=== PATIENT | male | born 1970 | race Caucasian/White ===

== ENCOUNTER 2017-11-21 13:13 | Emergency (ER) | payer OTHER, SELFPAY ==
[2017-11-21 13:30] VITALS: BP 129/87; PULSE 93; RESP 20; TEMP 36.6; O2SAT 99; BMI 21.6
--- NOTE | 2017-11-21 14:34 | HMH.EDUTC ---
[facility] Disposition Clinical Impression: Strep throat Disposition: Home, Self-Care Condition on Discharge: Good Instructions: Strep Throat Additional Instructions: Contact precautions discussed with patient Tylenol or ibuprofen as needed for pain or fever If symptoms worsen or do not improve return or be seen in the ER Prescriptions: Azithromycin [Zithromax 250mg tab] 250 mg PO DIRECTED #6 tab Referrals: Irma Alberts PA [Primary Care Provider] - Time of Disposition: 14:41 Medical Decision Making Vital Signs: 11/21/17 13:30 Temperature 98 F Temperature Source Temporal Artery Scan Pulse Rate [Brachial] 93 H Respiratory Rate 20 Blood Pressure [Right Arm] 129/87 Blood Pressure Mean [Right Arm] 101 Blood Pressure Source [Right Arm] Automatic Cuff Blood Pressure Position [Right Arm] Sitting 02 Sat by Pulse Oximetry 99 Oxygen Delivery Method Room Air - Joselito Inquiry Pt receiving controlled substance: No [facility] HPI - General Chief complaint: Urgent Treatment Center Stated complaint: possible flu Time Seen by Provider: 11/21/17 14:34 Mode of Arrival: Ambulatory Source of Information: Patient Limitations: No Limitations Description of Symptoms (Recalled from Triage Doc. by RN): FEELS BAD, BODY HURTS, CHILLS AND FEVER HEENT Symptoms (Recalled from RN notes): Yes Resp Symptoms (Recalled from RN notes): Yes Skin Symptoms (Recalled from RN notes): No MS Symptoms (Recalled from RN notes): No Functional Status (Recalled from RN notes): NA - History of Present Illness Provider Complaint: 47-year-old male presents for body aches, chills, sore throat, patient states he just feels bad that started today. - Related Data Home Medications Medication Instructions Recorded Confirmed Fluticasone/Vilanterol [Breo 1 each IH DAILY 11/21/17 11/21/17 Ellipta 100-25 Mcg INH] Previous Rx's Medication Instructions Recorded Azithromycin [Zithromax 250mg 250 mg PO DIRECTED #6 tab 11/21/17 tab] Allergies Allergy/AdvReac Type Severity Reaction Status Date / Time No Known Allergies Allergy Verified 11/21/17 13:28 - Worker's Comp Is this a Worker's Comp case?: No [facility] History I have reviewed the patient's past medical history: Yes - *Social History Smoking Status: Current every day smoker Tobacco Type: cigarettes Alcohol Intake: never - Psychiatric History Expresses thoughts of harming self/others: None Suicide Plan Description: No Plan ROS Obtained: Yes All systems reviewed & no additional complaints - Constitutional Constitutional: Reports system reviewed and no additional complaints, except as docu, Reports as per HPI, Reports body ache, Reports chills, Reports weakness - Eyes Eyes: Reports system reviewed and no additional complaints, except as docu - ENT Ears, Nose, Mouth, and Throat: Reports system reviewed and no additional complaints, except as docu - Cardiovascular Cardiovascular: Reports system reviewed and no additional complaints, except as docu - Respiratory Respiratory: Yes system reviewed and no additional complaints, except as docu - Gastrointestinal Gastrointestingal: Reports: system reviewed and no additional complaints, except as docu - Musculoskeletal Musculoskeletal: Reports system reviewed and no additional complaints, except as docu - Integumentary/Breasts Skin/Breast: Reports system reviewed and no additional complaints, except as docu - Neurologic Neurologic: Reports system reviewed and no additional complaints, except as docu - Endocrine Endocrine: Reports system reviewed and no additional complaints, except as docu - Hematologic/Lymphatic Henatologic/Lymphatic: Reports system reviewed and no additional complaints, except as docu - Allergic/Immunologic Allergic/Immunologic: Reports system reviewed and no additional complaints, except as docu Physical Exam - General General appearance: alert, in no apparent distress
[2017-11-21 14:58] LABS: UTC Strep Screen (Rapid) Negative (Negative)
== END 2017-11-21 15:00 | disposition home or self-care (01) ==
PROVIDERS: Emergency Provider Nurse Practitioner Family; Family Provider Physician Assistant; PCP Physician Assistant
DX: J02.0 Streptococcal pharyngitis (principal); F17.210 Nicotine dependence, cigarettes, uncomplicated; Z79.51 Long term (current) use of inhaled steroids; Z79.899 Other long term (current) drug therapy
CPT/HCPCS: 87880; 99201

== ENCOUNTER → 2018-12-28 11:56 | Outpatient (CLI) | payer OTHER, SELFPAY | PROVIDERS: Visit Provider Internal Medicine Cardiovascular Disease | DX: R06.00 Dyspnea, unspecified (principal); R53.83 Other fatigue; F10.10 Alcohol abuse, uncomplicated; R94.31 Abnormal electrocardiogram [ECG] [EKG]; Z72.0 Tobacco use; Z82.79 Family history of other congenital malformations, deformations and chromosomal abnormalities | CPT/HCPCS: 36415; 83880 ==

== ENCOUNTER → 2020-04-21 16:37 | Outpatient (CLI) | payer OTHER, SELFPAY ==
--- NOTE | 2020-04-21 16:41 | XR_ITS ---
PROCEDURE: XR CHEST 2V CLINICAL HISTORY: lung pain Smoker, pain COMPARISON: CXR CHEST(2 VIEWS-NOT PORTABLE) from 02/14/2017 CXR CHEST(2 VIEWS-NOT PORTABLE) from 03/15/2017 CXR CHEST(2 VIEWS-NOT PORTABLE) from 07/03/2017 FINDINGS: The cardiomediastinal silhouette and pulmonary vascularity are within normal limits. COPD. No lobar consolidation or collapse No acute bony abnormalities. IMPRESSION: COPD, no acute finding Dictated by: Abad Moreno MD 04/21/2020 18:34 Electronically signed by Abad Moreno MD in [place] 04/21/2020 18:34
== END ==
PROVIDERS: PCP Emergency Medicine; Visit Provider Physician Assistant
DX: R07.9 Chest pain, unspecified (principal)
CPT/HCPCS: 71046

== ENCOUNTER 2020-08-18 08:09 | Emergency (ER) | payer OTHER, SELFPAY ==
[2020-08-18 08:10] VITALS: BP 161/107; PULSE 85; RESP 17; TEMP 37.1; O2SAT 97; BMI 24.1
--- NOTE | 2020-08-18 08:17 | HMH.EDGENADL ---
ED Disposition Clinical Impression: Sinusitis Disposition: Home, Self-Care Condition on Discharge: Good Instructions: Sinusitis Additional Instructions: You were seen on an emergency basis. It is very important that you follow up with your primary care provider and/or specialist as we discussed within 2 days. All labs and imaging were obtained and interpreted here to rule out life threatening emergencies, but your final results should be reviewed by your primary doctor at your follow up appointment. Please return to the emergency department if any of your symptoms worsen, or if they do not improve as we discussed. Referrals: Irma Alberts PA [Primary Care Provider] - - Critical Care Critical Care Time: No Attestation: On , the high probability of a clinically significant, sudden or life threatening deterioration of the following system(s) required my full and direct attention, intervention and personal management. The time I documented below is in addition to time spent performing reported procedures but includes the following listed in this critical care notation. Medical Decision Making - Medical Records Medical records reviewed: Yes: I reviewed the patient's medical records. - Joselito Inquiry Pt receiving controlled substance: No Medical Decision Narrative: 49-year-old male presenting for Covid testing and symptoms of sinusitis x3 days. No antibiotics indicated. Nontoxic, afebrile, hemodynamically stable, oxygenating well on room air. Benign exam. Follow-up with PCP. General Adult HPI - General Stated complaint: Possible sinus infection Time Seen by Provider: 08/18/20 08:21 - History of Present Illness HPI narrative: 49-year-old male with a history of COPD presenting with a 3-day history of nasal congestion. He has been taken [id number] medication for this which is helped the symptoms. He was recently exposed to a family member with COVID-19 and presents for testing. No fever, chills, nausea, vomiting, cough, shortness of breath, chest pain, abdominal pain, diarrhea, constipation. - Related Data Previous Rx's Medication Instructions Recorded Gentamicin Sulfate [Garamycin 0.3% 1 - 2 drops EYE-LEFT Q4H #1 drops 07/05/19 opth wali 5mL] Azithromycin [Z-Lowell 250mg Tab*] 250 mg PO UD DOSE PK #6 tab 10/30/19 methylPREDNISolone [Medrol 4mg 4 mg PO DIRECTED #21 tab 10/30/19 tab] Sulfacetamide Sodium [Bleph-10] 1 drp EYE-BOTH Q3H 7 Days #1 bottle 11/14/19 albuterol sulfate 90 mcg/actuation 2 puff INHALATION Q4-6H PRN #1 inh 01/22/20 aerosol inhaler fluticasone fur. 100 mcg-umeclid See Rx Instructions .ROUTE 07/10/20 62.5 mcg-vilant 25 mcg .COMPLEX #60 unspecified inhalat.powder Allergies Allergy/AdvReac Type Severity Reaction Status Date / Time No Known Allergies Allergy Verified 12/28/18 10:55 [facility] History - Hepatitis A Screen Attestation statement:: This patient has been screened for Hepatitis A risk factors. I have reviewed the patient's past medical history: Yes Medical History: Reports:: Asthma, Chronic Obstructive Pulmonary Disease (COPD) Other Surgeries: Yes: No Previous Surgery Amputation: No Fractures: No - Social History Smoking Status: Current every day smoker Tobacco Type: cigarettes # Packs/Day (cigarettes): 1 Alcohol Intake: never Alcohol Intake Frequency:: 3 or more drinks per day Substance Use Type: denies use Occupational Status: employed Housing: house Family Hx:: No significant family history ROS Obtained: Yes All systems reviewed & no additional complaints Physical Exam General: well developed, well hydrated, no acute distress Head: Normocephalic, atraumatic. Mild bilateral frontal sinus tenderness to palpation EENT: airway patent, mucous membranes moist. extraocular muscles intact. external ears are within normal limits Neck: supple. trachea is midline Heart: rate is normal, rhythm is normal. No murmurs appreciated Lungs: betty
[2020-08-18 08:29] VITALS: BP 126/78; PULSE 60; RESP 18; TEMP 36.7; O2SAT 99
== END 2020-08-18 08:30 | disposition home or self-care (01) ==
LOC: ER 08:26
PROVIDERS: Emergency Provider Physician Assistant; PCP Physician Assistant
DX: Z20.828 Contact with and (suspected) exposure to other viral communicable diseases (principal); J01.90 Acute sinusitis, unspecified; J44.9 Chronic obstructive pulmonary disease, unspecified
CPT/HCPCS: 99282; U0003

== ENCOUNTER → 2020-08-21 11:53 | Outpatient (CLI) | payer OTHER, SELFPAY ==
--- NOTE | 2020-08-21 11:55 | CA_ITS ---
APPROVED REPORT Right Lower Extremity Venous Study for DVT. Monitoring Specialist: JOEL Indications Lower Extremity Pain: Right Pain in right leg Vein Imaging CFV (R): compressive, spontaneous, phasic, augmentation FEM (R): compressive, spontaneous, phasic, augmentation POP (R): compressive, spontaneous, phasic, augmentation DFV (R): compressive, spontaneous, phasic, augmentation PTV (R): Compressible GSV (R): Compressible Peroneals (R):Compressible GAS (R): Compressible Findings No evidence of DVT or superficial thrombophlebitis in the veins scanned of the right lower extremity. Conclusion No evidence of DVT or superficial thrombophlebitis in the veins scanned of the right lower extremity. Electronically signed by : Abad Moreno MD 08/21/2020 15:59:22
[2020-08-21 17:17] LABS: Basophils # 0.1 K/mm3 (0-0.2); Basophils % 0.7 % (0.1-2.0); Eosinophils # 0.1 K/mm3 (0.0-0.4); Eosinophils % 1.4 % (0.1-12.0); Hematocrit 55.6 % (42.0-52.0); Lymphocytes # 1.3 K/mm3 (0.7-4.5); Mean Corpuscular HGB Conc 33.3 g/dL (31.8-35.4); Mean Corpuscular Hemoglobin 31.9 pg (27.0-31.2); Mean Corpuscular Volume 95.8 fl (80-94); Mean Platelet Volume 8.8 fl (7.4-10.4); Monocytes # 0.3 K/mm3 (0.1-1.0); Monocytes % 3.8 % (1.7-9.3); Neutrophils # 6.4 K/mm3 (1.8-7.8); Neutrophils % 78.1 % (37.0-80.0); Platelet Count 225 K/mm3 (142-424); Red Cell Distribution Width 13.4 % (11.5-17.5); White Blood Count 8.2 K/mm3 (4.8-10.8)
[2020-08-21 17:21] LABS: Hemoglobin 18.5 g/dL (14.1-18.0)
[2020-08-21 17:33] LABS: Alanine Aminotransferase 31 U/L (12-78); Albumin Level 4.5 g/dl (3.5-5.0); Albumin/Globulin Ratio 1.6 (1.1-1.8); Alkaline Phosphatase 80 U/L (38-126); Anion Gap 12.4 mEq/L (5-15); Aspartate Amino Transferase 30 U/L (17-59); Bilirubin,Total 0.6 mg/dl (0.2-1.3); Blood Urea Nitrogen 9 mg/dl (9-20); Calcium 9.8 mg/dl (8.4-10.2); Carbon Dioxide 28 mmol/L (22.0-30.0); Chloride 104 mmol/L (98-107); Chol/HDL Ratio 3.8 (1-3.5); Cholesterol 263 mg/dl (140-200); Estimated Glomerular Filt Rate 120 ml/min (>60); GFR (African American) 145 ML/MIN (>60); Globulin 2.8 g/dL (1.3-3.2); Glucose 99 mg/dl (74-100); HDL Cholesterol 69 mg/dl (40-60); Potassium 4.4 mmoL/L (3.5-5.1); Sodium 140 mmol/L (136-145); Total Protein,Serum 7.3 g/dl (6.3-8.2); Triglycerides 105 mg/dl (30-150); VLDL Cholesterol 21 mg/dL (0-40)
[2020-08-21 17:44] LABS: Hemoglobin A1C 5.3 % (4.0-6.0)
[2020-08-21 17:45] LABS: Direct LDL Cholesterol 181.66 mg/dL (100-129)
[2020-08-21 17:49] LABS: 25-OH Vitamin D, Total 15.4 ng/mL (30-100)
[2020-08-21 17:51] LABS: T4 (Thyroxine) 8.2 ug/dl (5.53-11.0)
[2020-08-21 18:39] LABS: Vitamin B12 276 pg/mL (239-931)
== END ==
PROVIDERS: PCP Physician Assistant; Visit Provider Physician Assistant
DX: M79.604 Pain in right leg (principal)
CPT/HCPCS: 80053; 80061; 82306; 82607; 82746; 83036; 84436; 84443; 85025; 93971

== ENCOUNTER 2020-11-03 07:28 | Emergency (ER) | payer OTHER, SELFPAY ==
[2020-11-03 07:28] VITALS: BP 159/105; PULSE 79; RESP 15; TEMP 36.8; O2SAT 91; BMI 24.1
--- NOTE | 2020-11-03 07:40 | HMH.EDSKAF ---
ED Disposition Clinical Impression: Herpes zoster Qualifiers: Herpes zoster complications: without complications Qualified Code(s): B02.9 - Zoster without complications Disposition: Home, Self-Care Condition on Discharge: Good Instructions: DI for Shingles Additional Instructions: use meds and see pcp for follow up Prescriptions: Acyclovir [Acyclovir 800mg tab] 800 mg PO 5XDAY #35 tab Transmission Status: Pending to [facility] predniSONE [Prednisone 20mg Tab] 20 mg PO BID #10 tab Transmission Status: Pending to [facility] Referrals: Irma Alberts PA [Primary Care Provider] - - Critical Care Critical Care Time: No Attestation: On 11/03/20, the high probability of a clinically significant, sudden or life threatening deterioration of the following system(s) required my full and direct attention, intervention and personal management. The time I documented below is in addition to time spent performing reported procedures but includes the following listed in this critical care notation. Medical Decision Making - Medical Records Medical records reviewed: Yes: I reviewed the patient's medical records. - Joselito Inquiry Pt receiving controlled substance: No Vital Signs: 11/03/20 07:28 11/03/20 07:44 Temperature 98.2 F Temperature Source Oral Pulse Rate [Left Brachial] 79 80 Respiratory Rate 15 18 Blood Pressure [Left Arm] 159/105 H 159/105 H Blood Pressure Mean [Left Arm] 123 123 Blood Pressure Source [Left Arm] Automatic Cuff Automatic Cuff Blood Pressure Position [Left Arm] Sitting Sitting 02 Sat by Pulse Oximetry 91 L 93 L Oxygen Delivery Method Room Air Skin/Abscess/FB HPI - General Chief complaint: Skin/Abscess/Foreign Body Stated complaint: possible shingles rash on back and under arm Time Seen by Provider: 11/03/20 07:35 Mode of Arrival: Ambulatory Source of Information: Patient, Medical Record Limitations: No Limitations Description of Symptoms (Recalled from ER Triage Doc. by RN): Pt reports he thinks he has shingles. Rash to left side of back, and under left axilla. Reports it is painful. - History of Present Illness HPI narrative: rash noted on lt post chest -over the last few days MD complaint: rash Onset (ago): day(s) Tetanus up to date: unsure Location: chest Severity: moderate Associated symptoms: denies other symptoms Treatments prior to arrival: none - Related Data Home Medications Medication Instructions Recorded Confirmed Fluticasone/Umeclidin/Vilanter See Rx Instructions .ROUTE .COMPLEX 11/03/20 11/03/20 [Trelegy Ellipta] Previous Rx's Medication Instructions Recorded Acyclovir [Acyclovir 800mg tab] 800 mg PO 5XDAY #35 tab 11/03/20 predniSONE [Prednisone 20mg 20 mg PO BID #10 tab 11/03/20 Tab] Allergies Allergy/AdvReac Type Severity Reaction Status Date / Time No Known Allergies Allergy Verified 11/03/20 07:40 [facility] History - Hepatitis A Screen Drug use history?: No High risk sexual behaviors?: No History of sexually transmitted infection?: No Currently employed?: No Childcare worker?: No Do you have indoor plumbing?: Yes Do you have electricity?: Yes Attestation statement:: This patient has been screened for Hepatitis A risk factors. I have reviewed the patient's past medical history: Yes Medical History: Reports:: Asthma, Chronic Obstructive Pulmonary Disease (COPD) Denies:: Cancer, Diabetes Mellitus Type 1, Diabetes Mellitus Type 2, MRSA Other Surgeries: Yes: No Previous Surgery Amputation: No Fractures: No - Social History Smoking Status: Current every day smoker Tobacco Type: cigarettes # Packs/Day (cigarettes): 1 Alcohol Intake: current Alcohol Intake Frequency:: 3 or more drinks per day Substance Use Type: denies use Occupational Status: employed Housing: house Family Hx:: No significant family history ROS Obtained: Yes All systems reviewed & no additional
[2020-11-03 07:44] VITALS: BP 159/105; PULSE 80; RESP 18; O2SAT 93
[2020-11-03 08:06] VITALS: BP 148/89; PULSE 81; RESP 17; TEMP 36.8; O2SAT 92
== END 2020-11-03 08:08 | disposition home or self-care (01) ==
PROVIDERS: Emergency Provider Emergency Medicine; PCP Physician Assistant
DX: B02.9 Zoster without complications (principal); J44.9 Chronic obstructive pulmonary disease, unspecified; F17.210 Nicotine dependence, cigarettes, uncomplicated
CPT/HCPCS: 99282

== ENCOUNTER → 2021-07-07 18:10 | Outpatient (CLI) | payer OTHER, SELFPAY ==
[2021-07-07 18:56] LABS: Basophils # 0.1 K/mm3 (0-0.2); Eosinophils # 0.1 K/mm3 (0.0-0.4); Eosinophils % 2.2 % (0.1-12.0); Hematocrit 52.7 % (42.0-52.0); Hemoglobin 17.7 g/dL (14.1-18.0); Lymphocytes # 1.6 K/mm3 (0.7-4.5); Lymphocytes % 25.3 % (10-50); Mean Corpuscular HGB Conc 33.5 g/dL (31.8-35.4); Mean Corpuscular Hemoglobin 32.4 pg (27.0-31.2); Mean Corpuscular Volume 96.6 fl (80-94); Mean Platelet Volume 8.2 fl (7.4-10.4); Monocytes # 0.4 K/mm3 (0.1-1.0); Monocytes % 6.2 % (1.7-9.3); Neutrophils # 4.1 K/mm3 (1.8-7.8); Neutrophils % 65.3 % (37.0-80.0); Platelet Count 248 K/mm3 (142-424); Red Blood Count 5.45 M/mm3 (4.60-6.20); Red Cell Distribution Width 13.4 % (11.5-17.5); White Blood Count 6.2 K/mm3 (4.8-10.8)
[2021-07-07 18:58] LABS: Alanine Aminotransferase 30 U/L (12-78); Albumin Level 4.5 g/dl (3.5-5.0); Albumin/Globulin Ratio 1.7 (1.1-1.8); Alkaline Phosphatase 62 U/L (38-126); Anion Gap 15.2 mEq/L (5-15); Aspartate Amino Transferase 29 U/L (17-59); Bilirubin,Total 0.7 mg/dl (0.2-1.3); Blood Urea Nitrogen 9 mg/dl (9-20); Calcium 9.6 mg/dl (8.4-10.2); Carbon Dioxide 28 mmol/L (22.0-30.0); Chloride 101 mmol/L (98-107); Chol/HDL Ratio 3.6 (1-3.5); Cholesterol 259 mg/dl (140-200); Estimated Glomerular Filt Rate 119 ml/min (>60); GFR (African American) 144 ML/MIN (>60); Globulin 2.7 g/dL (1.3-3.2); Glucose 86 mg/dl (74-100); HDL Cholesterol 71 mg/dl (40-60); Potassium 4.2 mmoL/L (3.5-5.1); Sodium 140 mmol/L (136-145); Total Protein,Serum 7.2 g/dl (6.3-8.2); Triglycerides 103 mg/dl (30-150); VLDL Cholesterol 21 mg/dL (0-40)
[2021-07-07 19:12] LABS: Free T4 (Free Thyroxine) 1.23 ng/dl (0.78-2.19)
[2021-07-07 19:14] LABS: 25-OH Vitamin D, Total 25.4 ng/mL (30-100)
[2021-07-07 19:21] LABS: Direct LDL Cholesterol 157.18 mg/dL (100-129)
[2021-07-07 19:30] LABS: Prostate Specific Ag Screen 0.7 ng/ml (0.0-4.0); Thyroid Stimulating Hormone 5.82 uIU/mL (0.465-4.68)
== END ==
PROVIDERS: Visit Provider Physician Assistant
DX: J44.9 Chronic obstructive pulmonary disease, unspecified (principal); Z12.5 Encounter for screening for malignant neoplasm of prostate; E55.9 Vitamin D deficiency, unspecified; Z79.899 Other long term (current) drug therapy
CPT/HCPCS: 80053; 80061; 82306; 84439; 84443; 85025; G0103

== ENCOUNTER 2021-07-27 16:58 | Emergency (ER) | payer OTHER, SELFPAY ==
[2021-07-27 17:25] VITALS: BP 143/93; PULSE 84; RESP 18; TEMP 36.9; O2SAT 95; BMI 23.3
--- NOTE | 2021-07-27 17:56 | HMH.EDUTC ---
[facility] [place] Clinical Impression: Cellulitis of left foot Disposition: Home, Self-Care Condition on Discharge: Good Instructions: Cellulitis Additional Instructions: Keep the affected area clean and dry. Follow up with your regular doctor. Take the antibiotics as directed and apply the topical antibiotics as directed. Apply warm wet compresses to the affected area three or four times per day. GO TO THE ER FOR ANY WORSENING SYMPTOMS Prescriptions: Sulfamethoxazole/Trimethoprim [Bactrim DS tablet] 1 each PO BID 10 Days #20 tab Transmission Status: Received by [facility] Mupirocin [Bactroban 2% Ointment 22gm tube] 1 applicatio TP TID 7 Days #1 gm Transmission Status: Received by [facility] cephALEXin [cephALEXin 500mg capsule] 500 mg PO Q6H 10 Days #40 cap Transmission Status: Received by [facility] Referrals: Chuck Vallejo MD [Primary Care Provider] - Forms: Work/School Release Time of Disposition: 18:22 Medical Decision Making - Medical Records Medical records reviewed: No: I reviewed the patient's medical records. - Joselito Inquiry Pt receiving controlled substance: No Vital Signs: 07/27/21 17:25 07/27/21 18:05 Temperature 98.4 F 98.4 F Temperature Source Oral Pulse Rate 84 Pulse Rate [Right Brachial] 84 Respiratory Rate 18 18 Blood Pressure 143/93 H Blood Pressure [Right Arm] 143/93 H Blood Pressure Mean [Right Arm] 109 Blood Pressure Source [Right Arm] Automatic Cuff Blood Pressure Position [Right Arm] Sitting 02 Sat by Pulse Oximetry 95 Oxygen Delivery Method Room Air Orders (Tests/Meds): ED MEDICATIONS Discontinued Medications Generic Name Dose Route Start Last Admin Trade Name Freq PRN Reason Stop Dose Admin Ceftriaxone Sodium 1 gm 07/27/21 18:02 07/27/21 18:16 Ceftriaxone 1gm Vial IM 07/27/21 18:03 1 gm ONCE ONE Administration Lidocaine HCl 0 ml 07/27/21 18:02 07/27/21 18:17 Lidocaine 1% 5ml Pf Vial IM 07/27/21 18:03 2.1 ml ONCE ONE Administration [facility] [place] HPI - General Stated complaint: insect bite on lt foot Time Seen by Provider: 07/27/21 17:56 Mode of Arrival: Ambulatory Source of Information: Patient Limitations: No Limitations Description of Symptoms (Recalled from Triage Doc. by RN): PATIENT C/O STING/BITE TO TOP OF LEFT FOOT YESTERDAY. REDNESS AND SWELLING NOTED TO AREA HEENT Symptoms (Recalled from RN notes): No Resp Symptoms (Recalled from RN notes): No Skin Symptoms (Recalled from RN notes): Yes MS Symptoms (Recalled from RN notes): No Functional Status (Recalled from RN notes): WNL - History of Present Illness Provider Complaint: He states that since yesterday he has had a red, painful area on top of his left foot. He denies any known injury. He denies a history of diabetes. He thinks that a insect was in his house shoe and bit him to start his symptoms, but he his not sure. He denies any fever or chills. - Related Data Previous Rx's Medication Instructions Recorded fluticasone fur. 100 mcg-umeclid See Rx Instructions .ROUTE 07/07/21 62.5 mcg-vilant 25 mcg .COMPLEX #28 each inhalat.powder atorvastatin 10 mg tablet 10 mg PO HS #30 tab 07/09/21 cholecalciferol (vitamin D3) 25 25 mcg PO DAILY #30 cap 07/09/21 mcg (1,000 unit) capsule ergocalciferol (vitamin D2) 1,250 1,250 mcg PO WEEKLY #5 cap 07/09/21 mcg (50,000 unit) capsule levothyroxine 25 mcg tablet 25 mcg PO DAILY #30 tab 07/09/21 Mupirocin [Bactroban 2% Ointment 1 applicatio TP TID 7 Days #1 gm 07/27/21 22gm tube] Sulfamethoxazole/Trimethoprim 1 each PO BID 10 Days #20 tab 07/27/21 [Bactrim DS tablet] cephALEXin [cephALEXin 500mg 500 mg PO Q6H 10 Days #40 cap 07/27/21 capsule] Allergies Allergy/AdvReac Type Severity Reaction Status Date / Time No Known Allergies Allergy Verified 07/07/21 15:29 - Worker's Comp Is this a Worker's Comp case?: No [facility]
[2021-07-27 18:05] VITALS: BP 143/93; PULSE 84; RESP 18; TEMP 36.9; O2SAT 95
== END 2021-07-27 18:27 | disposition home or self-care (01) ==
PROVIDERS: Emergency Provider Nurse Practitioner Family; PCP Emergency Medicine
DX: L03.116 Cellulitis of left lower limb (principal); S90.862A Insect bite (nonvenomous), left foot, initial encounter; W57.XXXA Bitten or stung by nonvenomous insect and other nonvenomous arthropods, initial encounter; J44.9 Chronic obstructive pulmonary disease, unspecified; F17.210 Nicotine dependence, cigarettes, uncomplicated
CPT/HCPCS: 96372; 99202; G0463

== ENCOUNTER → 2021-08-06 07:57 | Outpatient (CLI) | payer OTHER, SELFPAY ==
--- NOTE | 2021-08-06 08:45 | PC.NURSE ---
PFT Completed on Pt without incident. Albuterol 0.083% given to Pt via HHN, per protocol, Pt tolerated tx well.
== END ==
PROVIDERS: PCP Emergency Medicine; Visit Provider Physician Assistant
DX: J44.9 Chronic obstructive pulmonary disease, unspecified (principal)
CPT/HCPCS: 94060; 94726; 94729

== ENCOUNTER 2021-12-14 15:51 | Emergency (ER) | payer OTHER, SELFPAY ==
[2021-12-14 16:23] VITALS: BP 133/83; PULSE 92; RESP 16; TEMP 37.1; O2SAT 96; BMI 23.3
--- NOTE | 2021-12-14 16:46 | HMH.EDUTC ---
[facility] [place] Clinical Impression: Laceration of right foot Qualifiers: Encounter type: initial encounter Qualified Code(s): S91.311A - Laceration without foreign body, right foot, initial encounter Cellulitis Qualifiers: Site of cellulitis: extremity Site of cellulitis of extremity: lower extremity Laterality: right Qualified Code(s): L03.115 - Cellulitis of right lower limb Disposition: Home, Self-Care Condition on Discharge: Good Instructions: Cellulitis, DI for Avulsion Laceration (Not Requiring Sutures) Additional Instructions: Keep the wound clean and dry. Keep a dressing on it if you are going to be getting it dirty. Watch the for signs of infection, such as redness, swelling, drainage, fever. etc. Take tylenol or ibuprofen for pain. Follow up with your regular doctor. I recommend you to follow up with Dr. Ahuja (podiatry). I put a referral in. Call her office to make an appointment if you want to see her. GO TO THE ER FOR ANY WORSENING SYMPTOMS OR CONCERNS. Prescriptions: Sulfamethoxazole/Trimethoprim [Bactrim DS tablet] 1 each PO BID 10 Days #20 tab Transmission Status: Received by [facility] Mupirocin [Bactroban 2% Ointment 22gm tube] 1 applicatio TP TID 7 Days #1 gm Transmission Status: Received by [facility] cephALEXin [cephALEXin 500mg capsule] 500 mg PO Q6H 10 Days #40 cap Transmission Status: Received by [facility] Referrals: Chuck Vallejo MD [Primary Care Provider] - Forms: Work/School Release Time of Disposition: 17:22 Medical Decision Making - Medical Records Medical records reviewed: No: I reviewed the patient's medical records. - Joselito Inquiry Pt receiving controlled substance: No Vital Signs: 12/14/21 16:23 12/14/21 17:26 Temperature 98.7 F 98.1 F Temperature Source Oral Oral Pulse Rate 92 H Pulse Rate [Right Brachial] 92 H Respiratory Rate 16 18 Blood Pressure 133/83 Blood Pressure [Right Arm] 133/83 Blood Pressure Mean [Right Arm] 99 Blood Pressure Source Automatic Cuff Blood Pressure Source [Right Arm] Automatic Cuff Blood Pressure Position Sitting Blood Pressure Position [Right Arm] Sitting 02 Sat by Pulse Oximetry 96 Oxygen Delivery Method Room Air Room Air Orders (Tests/Meds): ED MEDICATIONS Discontinued Medications Generic Name Dose Route Start Last Admin Trade Name Lety PRN Reason Stop Dose Admin Ceftriaxone Sodium 1 gm 12/14/21 16:54 12/14/21 16:59 Ceftriaxone 1gm Vial IM 12/14/21 16:55 1 gm ONCE ONE Administration Lidocaine HCl 0 ml 12/14/21 16:54 12/14/21 17:00 Lidocaine 1% 5ml Pf Vial IM 12/14/21 16:55 4 ml ONCE ONE Administration ORDERS Category Date Time Status Wound Culture and Gram Stain Stat Micro 12/14/21 17:24 Results [facility] [place] - General Stated complaint: poss infected laceration to L foot Time Seen by Provider: 12/14/21 16:46 Mode of Arrival: Ambulatory Source of Information: Patient Limitations: No Limitations Description of Symptoms (Recalled from Triage Doc. by RN): pt. cut left big toe/ foot with chainsaw HEENT Symptoms (Recalled from RN notes): No Resp Symptoms (Recalled from RN notes): No Skin Symptoms (Recalled from RN notes): No MS Symptoms (Recalled from RN notes): Yes Functional Status (Recalled from RN notes): n/a - History of Present Illness Provider Complaint: 3 days ago he was working with a chainsaw and slipped and cut the top of his foot with the saw. He has a small, somewhat superficial laceration on the top of his right foot. He is here today because he is having redness around the site and his is afraid it will get infected. He is not a known diabetic. His tetanus immunization is up to date. - Related Data Home Medications Medication Instructions Recorded Confirmed Atorvastatin Calcium [Lipitor 10mg 10 mg PO HS 12/14/21 12/14/21 Tab] Cholecalciferol (Vitamin D3) 25 mcg PO
[2021-12-14 17:26] VITALS: BP 133/83; PULSE 92; RESP 18; TEMP 36.7; O2SAT 99
== END 2021-12-14 17:28 | disposition home or self-care (01) ==
PROVIDERS: Emergency Provider Nurse Practitioner Family; PCP Emergency Medicine
DX: L03.115 Cellulitis of right lower limb (principal); S91.311A Laceration without foreign body, right foot, initial encounter; W31.2XXA Contact with powered woodworking and forming machines, initial encounter
CPT/HCPCS: 87070; 87077; 87186; 87205; 96372; 99202; G0463; J0696

== ENCOUNTER 2022-01-27 15:59 | Emergency (ER) | payer OTHER, SELFPAY ==
[2022-01-27 16:01] VITALS: BP 134/85; PULSE 124; RESP 20; TEMP 36.7; O2SAT 94; BMI 23.3
--- NOTE | 2022-01-27 16:20 | XR_ITS ---
PROCEDURE INFORMATION: Exam: XR Chest Exam date and time: 01/27/2022 4:26 PM Age: 51 years old Clinical indication: Cough; Additional info: Cough, bodyaches, chills TECHNIQUE: Imaging protocol: XR of the chest. Views: 2 views. COMPARISON: CR XR CHEST 2V 04/21/2020 4:46 PM FINDINGS: Lungs: Regions of peribronchial thickening are present at both lung bases. Patchy interstitial infiltrates most pronounced in the right perihilar region are also present. No pleural effusions are demonstrated. Pleural spaces: See Lungs finding. Heart/Mediastinum: Unremarkable. No cardiomegaly. Bones/joints: Unremarkable. IMPRESSION: Findings compatible with bronchitis. Superimposed patchy interstitial infiltrates. Findings are nonspecific however may reflect an interstitial pneumonitis.
[2022-01-27 16:34] LABS: Strep Scrn Group A (Rapid) Negative (Negative)
[2022-01-27 16:58] LABS: Coronavirus 19, PCR Not Detected (NotDetected); Influenza A, PCR Not Detected (NotDetected); Influenza B, PCR Not Detected (NotDetected)
--- NOTE | 2022-01-27 17:17 | HMH.EDGENADL ---
ED Disposition Clinical Impression: Bronchitis Disposition: Home, Self-Care Condition on Discharge: Good Instructions: DI for Acute Bronchitis Additional Instructions: Please follow-up with your primary care physician in 2 to 3 days for further management. Please take your antibiotic as prescribed. Please return back to the emergency department for chest pain, difficulty breathing, inability to eat and drink or worsening symptoms. Prescriptions: Amoxicillin/Potassium Clav [Augmentin 500mg tab] 500 mg PO TID #30 tab Transmission Status: Received by [facility] Referrals: Chuck Vallejo MD [Primary Care Provider] - Forms: Work/School Release - Critical Care Critical Care Time: No Attestation: On 01/27/22, the high probability of a clinically significant, sudden or life threatening deterioration of the following system(s) required my full and direct attention, intervention and personal management. The time I documented below is in addition to time spent performing reported procedures but includes the following listed in this critical care notation. Medical Decision Making - Medical Records Medical records reviewed: Yes: I reviewed the patient's medical records. - Joselito Inquiry Pt receiving controlled substance: No Vital Signs: 01/27/22 16:01 01/27/22 18:52 Temperature 98.1 F 98.5 F Temperature Source Oral Oral Pulse Rate 116 H Pulse Rate [Right Radial] 124 H Respiratory Rate 20 18 Blood Pressure 128/85 Blood Pressure [Right Arm] 134/85 Blood Pressure Mean [Right Arm] 101 Blood Pressure Source [Right Arm] Automatic Cuff Blood Pressure Position [Right Arm] Sitting 02 Sat by Pulse Oximetry 94 L Oxygen Delivery Method Room Air Room Air - Lab Data Lab results reviewed: Yes: I reviewed the patient's lab results. Lab Results 01/27/22 16:15: Group A Strep Rapid Negative 01/27/22 16:19: SARS-CoV-2 (PCR) Not detected, Influenza A Untype (PCR) Not detected, Influenza Type B (PCR) Not detected Orders (Tests/Meds): ORDERS Category Date Time Status Strep Screen Confirmation Stat Micro 01/27/22 16:15 Received Medical Decision Narrative: Mr. Rodriguez is a 51-year-old male with no significant past medical history presenting with sore throat, body aches, cough and congestion for a week. Patient is afebrile and hemodynamically stable on arrival. Physical exam remarkable for well-appearing male nontoxic-appearing. Patient is breathing comfortably with no wheezing, rales or rhonchi. Patient has normal oropharyngeal, no lymphadenopathy, full range of motion of the neck. Otherwise benign exam. Patient is swabbed for Covid and flu which is negative. Chest x-ray shows no evidence of pneumonia but does show bronchitis/pneumonitis. Patient is given a prescription for antibiotic for outpatient management and instructed to follow-up with primary care physician in 2 to 3 days for further management. Patient instructed to return to the ED for any concerning symptoms such as difficulty breathing, chest pain or any other concerning symptoms. General Adult HPI - General Chief complaint: Upper Respiratory Infection Stated complaint: body aches,SOA,VALENCIA cough Time Seen by Provider: 01/27/22 16:15 Mode of Arrival: Ambulatory Source of Information: Patient Limitations: No Limitations Description of Symptoms (Recalled from ER Triage Doc. by RN): Pt states that he had a sore throat on Tuesday and Tuesday. Advises that Tuesday he began having a VALENCIA, chills and bodyaches - History of Present Illness HPI narrative: Mr. Lindsey cavanaugh is a 51 yo male w/ no significant PMH who presents to the ED for sore throat on Tuesday and Tuesday. Advises that Tuesday he began having a VALENCIA, chills and bodyaches. He denies any sick contacts or covid exposures. Patient has full ROM neck. No LAD or oropharyngeal exudate. Patient also reports cough, congestion. He denies any fevers, chills, dyspnea, N/V or other infec
[2022-01-27 18:52] VITALS: BP 128/85; PULSE 116; RESP 18; TEMP 36.9; O2SAT 95
== END 2022-01-27 18:54 | disposition home or self-care (01) ==
PROVIDERS: Emergency Provider Student in an Organized Health Care Education/Training Program; PCP Emergency Medicine
DX: J40 Bronchitis, not specified as acute or chronic (principal); J06.9 Acute upper respiratory infection, unspecified; R51.9 Headache, unspecified; J44.9 Chronic obstructive pulmonary disease, unspecified; F17.210 Nicotine dependence, cigarettes, uncomplicated; Z20.822 Contact with and (suspected) exposure to COVID-19; Z79.51 Long term (current) use of inhaled steroids; Z79.899 Other long term (current) drug therapy
CPT/HCPCS: 71046; 87430; 99284; C9803; U0003; U0005

== ENCOUNTER → 2022-08-17 10:29 | Outpatient (CLI) | payer OTHER, SELFPAY ==
[2022-08-17 20:16] LABS: Basophils # 0.1 K/mm3 (0-0.2); Basophils % 1.3 % (0.1-2.0); Eosinophils # 0.2 K/mm3 (0.0-0.4); Eosinophils % 2.4 % (0.1-12.0); Hematocrit 49.9 % (42.0-52.0); Hemoglobin 16.8 g/dL (14.1-18.0); Lymphocytes # 1.8 K/mm3 (0.7-4.5); Lymphocytes % 25.9 % (10-50); Mean Corpuscular HGB Conc 33.7 g/dL (31.8-35.4); Mean Corpuscular Hemoglobin 31.9 pg (27.0-31.2); Mean Corpuscular Volume 94.7 fl (80-94); Mean Platelet Volume 8.6 fl (7.4-10.4); Monocytes # 0.4 K/mm3 (0.1-1.0); Monocytes % 5.9 % (1.7-9.3); Neutrophils # 4.6 K/mm3 (1.8-7.8); Neutrophils % 64.5 % (37.0-80.0); Platelet Count 249 K/mm3 (142-424); Red Blood Count 5.27 M/mm3 (4.60-6.20)
[2022-08-17 20:36] LABS: Alanine Aminotransferase 27 U/L (12-78); Albumin Level 4.3 g/dl (3.5-5.0); Albumin/Globulin Ratio 1.7 (1.1-1.8); Alkaline Phosphatase 81 U/L (38-126); Anion Gap 15.3 mEq/L (5-15); Aspartate Amino Transferase 28 U/L (17-59); Bilirubin,Total 0.5 mg/dl (0.2-1.3); Blood Urea Nitrogen 8 mg/dl (9-20); Calcium 9.1 mg/dl (8.4-10.2); Carbon Dioxide 27 mmol/L (22.0-30.0); Chloride 100 mmol/L (98-107); Chol/HDL Ratio 3.7 (1-3.5); Cholesterol 268 mg/dl (140-200); Estimated Glomerular Filt Rate 102 ml/min (>60); GFR (African American) 123 ML/MIN (>60); Globulin 2.6 g/dL (1.3-3.2); Glucose 72 mg/dl (74-100); HDL Cholesterol 73 mg/dl (40-60); Potassium 4.3 mmoL/L (3.5-5.1); Sodium 138 mmol/L (136-145); Total Protein,Serum 6.9 g/dl (6.3-8.2); Triglycerides 82 mg/dl (30-150); VLDL Cholesterol 16 mg/dL (0-40)
[2022-08-17 20:53] LABS: Direct LDL Cholesterol 171.05 mg/dL (100-129)
[2022-08-17 21:08] LABS: 25-OH Vitamin D, Total < 12.8 ng/mL (30-100); Prostate Specific Ag Screen 0.6 ng/ml (0.0-4.0); Thyroid Stimulating Hormone 6.91 uIU/mL (0.465-4.68)
== END ==
PROVIDERS: PCP Physician Assistant; Visit Provider Physician Assistant
DX: Z00.00 Encounter for general adult medical examination without abnormal findings (principal); E55.9 Vitamin D deficiency, unspecified; Z12.5 Encounter for screening for malignant neoplasm of prostate
CPT/HCPCS: 80053; 80061; 82306; 84443; 85025; G0103

== ENCOUNTER 2023-11-09 09:57 | Emergency (ER) | payer OTHER, SELFPAY ==
[2023-11-09 10:05] VITALS: BP 140/89; PULSE 71; RESP 18; TEMP 36.6; O2SAT 95; BMI 23.3
--- NOTE | 2023-11-09 10:28 | ED_ITS ---
Discharge Plan Disposition Patient Disposition: Home, Self-Care Condition: Good Prescriptions Prescriptions: New methylprednisolone 4 mg Tablets,Dose Pack 4 mg PO DIRECTED 6 Days Qty: 21 0RF Rx Instructions: Take 1 pack as directed for 6 days guaifenesin [Mucinex] 600 mg tablet extended release 12hr 600 - 1,200 mg PO BIDP PRN (Reason: Congestion) Qty: 30 0RF benzonatate [benzonatate] 100 mg capsule 100 mg PO TIDP PRN (Reason: Cough) Qty: 30 0RF amoxicillin-pot clavulanate 875-125 mg Tablet 1 tab PO Q12H Qty: 20 0RF No Action Trelegy Ellipta 100-62.5-25 mcg blister with device See Rx Instructions .ROUTE .COMPLEX Qty: 60 2RF Dose Instruction: INHALE 1 PUFF BY MOUTH ONCE A DAY FOR COPD Rx Instructions: INHALE 1 PUFF BY MOUTH ONCE A DAY FOR COPD Referrals Follow up/Referrals: Imra Alberts PA [Primary Care Provider] - See instructions Activity Restrictions/Add. Instructions Additional Instructions/Restrictions: Drink plenty of fluids. Take tylenol or ibuprofen for pain or fever. Take the medications as directed. Follow up with your regular doctor. GO TO THE ER FOR ANY WORSENING SYMPTOMS Clinical Impressions Clinical Impression: Chronic obstructive pulmonary disease Stand Alone Forms Stand Alone Forms: Work/School Release Instructions Patient Instructions: Chronic Obstructive Pulmonary Disease, DI for Chronic Obstructive Pulmonary Disease Discharge ED Provider: Daniel Bowman [facility] [place] HPI General Stated complaint: soa, runny nose Mode of Arrival: Ambulatory Source of Information: Patient Limitations: No Limitations Time Seen by Provider: 11/09/23 10:28 Description of Symptoms (Recalled from Triage Doc. by RN): Pt's symptoms are cough and feeling short of breath (o2 sat was 95 RA). HEENT Symptoms (Recalled from RN notes): No Resp Symptoms (Recalled from RN notes): Yes Skin Symptoms (Recalled from RN notes): No MS Symptoms (Recalled from RN notes): No Functional Status (Recalled from RN notes): n/a History of Present Illness Provider Complaint: He states that for the past 2 days he has had sinus congestion, chest congestion, and he has had chest tightness with deep breathing. Related Data Previous Rx's Medication Instructions Recorded fluticasone fur. 100 mcg-umeclid See Rx Instructions .Route 10/13/23 62.5 mcg-vilant 25 mcg .COMPLEX #60 ea inhalat.powder (Trelegy Ellipta) amoxicillin 875 mg-potassium 1 tab PO Q12H #20 tabs 11/09/23 clavulanate 125 mg tablet benzonatate 100 mg capsule 100 mg PO TIDP PRN Cough #30 caps 11/09/23 guaifenesin 600 mg tablet, 600 - 1,200 mg PO BIDP PRN 11/09/23 extended release 12 hr (Mucinex) Congestion #30 tabs methylprednisolone 4 mg tablets in 4 mg PO DIRECTED 6 days #21 tabs 11/09/23 a dose pack Allergies Allergy/AdvReac Type Severity Reaction Status Date / Time No Known Allergies Allergy Verified 11/09/23 10:15 Worker's Comp Is this a Worker's Comp case?: No [facility] Disclaimer: The information contained in this section may have been updated after the patient was seen, as this information can be updated by other users. Medical History Chronic obstructive pulmonary disease Hyperlipidemia Hypothyroidism Vitamin D deficiency Social History Smoking Status: Current every day smoker tobacco type: cigarettes packs per day: 1 second hand exposure: Yes alcohol intake: current substance use type: denies use current occupational status: employed Travel in the last 8 weeks: None housing: house ROS Obtained: Yes All systems reviewed & no additional complaints except as documented Constitutional Constitutional: Reports poor appetite Eyes Eyes: Reports system reviewed and no additional complaints, except as documented ENT Ears, Nose, Mouth, and Throat: Reports as per HPI Cardiovascular Cardiovascular: Reports system reviewed and no additional complaints, except as documented and Denies chest pain Respiratory Respiratory: Denies shortness of breath, Reports chest congestion, Reports cough, Denies stridor and Denies wheezing Gastrointestinal Gastrointestingal: Reports system reviewed and no additional complaints, except as documented; Denies abdominal pain, diarrhea or vomiting Musculoskeletal Musculoskeletal: Reports system reviewed and no additional complaints, except as documented and Denies arthralgias Integumentary/Breasts Skin/Breast: Reports system reviewed and no additional complaints, except as documented and Denies rash Neurologic Neurologic: Denies paresthesias Allergic/Immunologic Allergic/Immunologic: Denies wheezing Physical Exam General General appearance: alert and in no apparent distress Head Head exam: atraumatic, normocephalic and normal inspection Eye Eye exam: Present normal appearance, PERRL and EOMI ENT ENT exam: Present normal exam, normal oropharynx, mucous membranes moist, TM's normal bilaterally and normal external ear exam Neck Neck exam: Present normal inspection, full ROM and trachea midline; Absent meningismus or lymphadenopathy Chest Chest inspection: Present normal inspection and symmetric chest wall rise; Absent tenderness Respiratory Respiratory exam: Present normal lung sounds bilaterally; Absent respiratory distress Cardiovascular Cardiovascular exam: Present regular rate and normal rhythm; Absent JVD Abdominal Exam Abdominal exam: Present soft and normal bowel sounds; Absent distention, tenderness or guarding Extremities Exam Extremities exam: Present normal inspection, full ROM and normal capillary refill; Absent calf tenderness Back Exam Back exam: Present normal inspection; Absent tenderness Neurological Exam Neurological exam: Present alert and oriented X3 Psychiatric Psychiatric exam: Present normal affect and normal mood Skin Skin exam: Present warm, dry, intact and normal color Lymphatic Lymphatic Findings: no adenopathy Medical Decision Making Medical Records Medical records reviewed: No I reviewed the patient's medical records. Joselito Inquiry Pt receiving controlled substance: No Vital Signs: 11/09/23 10:05 Temperature 97.9 F Temperature Source Oral Pulse Rate [Right Radial] 71 Respiratory Rate 18 Blood Pressure [Right Arm] 140/89 Blood Pressure Mean [Right Arm] 106 Blood Pressure Source [Right Arm] Automatic Cuff Blood Pressure Position [Right Arm] Sitting 02 Sat by Pulse Oximetry 95 Oxygen Delivery Method Room Air
[2023-11-09 11:02] VITALS: BP 140/89; PULSE 71; RESP 18; TEMP 36.6; O2SAT 95
--- NOTE | 2023-11-14 16:26 | EXP.UTC ---
Discharge Plan Disposition Patient Disposition: Home, Self-Care Condition: Good Prescriptions Prescriptions: New methylprednisolone 4 mg Tablets,Dose Pack 4 mg PO DIRECTED 6 Days Qty: 21 0RF Rx Instructions: Take 1 pack as directed for 6 days guaifenesin [Mucinex] 600 mg tablet extended release 12hr 600 - 1,200 mg PO BIDP PRN (Reason: Congestion) Qty: 30 0RF benzonatate [benzonatate] 100 mg capsule 100 mg PO TIDP PRN (Reason: Cough) Qty: 30 0RF amoxicillin-pot clavulanate 875-125 mg Tablet 1 tab PO Q12H Qty: 20 0RF No Action Trelegy Ellipta 100-62.5-25 mcg blister with device See Rx Instructions .ROUTE .COMPLEX Qty: 60 2RF Dose Instruction: INHALE 1 PUFF BY MOUTH ONCE A DAY FOR COPD Rx Instructions: INHALE 1 PUFF BY MOUTH ONCE A DAY FOR COPD Referrals Follow up/Referrals: Irma Alberts PA [Primary Care Provider] - See instructions Activity Restrictions/Add. Instructions Additional Instructions/Restrictions: Drink plenty of fluids. Take tylenol or ibuprofen for pain or fever. Take the medications as directed. Follow up with your regular doctor. GO TO THE ER FOR ANY WORSENING SYMPTOMS Clinical Impressions Clinical Impression: Chronic obstructive pulmonary disease Stand Alone Forms Stand Alone Forms: Work/School Release Instructions Patient Instructions: Chronic Obstructive Pulmonary Disease, DI for Chronic Obstructive Pulmonary Disease Discharge ED Provider: Daniel Bowman [facility] General Stated complaint: soa, runny nose Mode of Arrival: Ambulatory Source of Information: Patient Limitations: No Limitations Time Seen by Provider: 11/09/23 10:28 Description of Symptoms (Recalled from Triage Doc. by RN): Pt's symptoms are cough and feeling short of breath. HEENT Symptoms (Recalled from RN notes): No Resp Symptoms (Recalled from RN notes): Yes Skin Symptoms (Recalled from RN notes): No MS Symptoms (Recalled from RN notes): No Functional Status (Recalled from RN notes): n/a History of Present Illness Provider Complaint: He states that for the past 3 days he has had worsening cough, chest congestion, chest tightness, and malaise. Related Data Previous Rx's Medication Instructions Recorded fluticasone fur. 100 mcg-umeclid See Rx Instructions .Route 10/13/23 62.5 mcg-vilant 25 mcg .COMPLEX #60 ea inhalat.powder (Trelegy Ellipta) amoxicillin 875 mg-potassium 1 tab PO Q12H #20 tabs 11/09/23 clavulanate 125 mg tablet benzonatate 100 mg capsule 100 mg PO TIDP PRN Cough #30 caps 11/09/23 guaifenesin 600 mg tablet, 600 - 1,200 mg PO BIDP PRN 11/09/23 extended release 12 hr (Mucinex) Congestion #30 tabs methylprednisolone 4 mg tablets in 4 mg PO DIRECTED 6 days #21 tabs 11/09/23 a dose pack Allergies Allergy/AdvReac Type Severity Reaction Status Date / Time No Known Allergies Allergy Verified 11/09/23 10:15 Worker's Comp Is this a Worker's Comp case?: [facility] Disclaimer: The information contained in this section may have been updated after the patient was seen, as this information can be updated by other users. Medical History Chronic obstructive pulmonary disease Hyperlipidemia Hypothyroidism Vitamin D deficiency Social History Smoking Status: Current every day smoker tobacco type: cigarettes packs per day: 1 second hand exposure: Yes alcohol intake: current substance use type: denies use current occupational status: employed Travel in the last 8 weeks: None housing: house ROS Obtained: Yes All systems reviewed & no additional complaints except as documented Constitutional Constitutional: Reports poor appetite Eyes Eyes: Reports system reviewed and no additional complaints, except as documented ENT Ears, Nose, Mouth, and Throat: Reports as per HPI Cardiovascular Cardiovascular: Reports system reviewed and no additional complaints, except as documented and Denies chest pain Respiratory Respiratory: Denies shortness of breath, Reports chest congestion, Reports cough, Denies stridor and Denies wheezing Gastrointestinal Gastrointestingal: Reports system reviewed and no additional complaints, except as documented; Denies abdominal pain, diarrhea or vomiting Musculoskeletal Musculoskeletal: Reports system reviewed and no additional complaints, except as documented and Denies arthralgias Integumentary/Breasts Skin/Breast: Reports system reviewed and no additional complaints, except as documented and Denies rash Neurologic Neurologic: Denies paresthesias Allergic/Immunologic Allergic/Immunologic: Denies wheezing Physical Exam General General appearance: alert and in no apparent distress Head Head exam: atraumatic, normocephalic and normal inspection Eye Eye exam: Present normal appearance, PERRL and EOMI ENT ENT exam: Present normal exam, normal oropharynx, mucous membranes moist, TM's normal bilaterally and normal external ear exam Neck Neck exam: Present normal inspection, full ROM and trachea midline; Absent meningismus or lymphadenopathy Chest Chest inspection: Present normal inspection and symmetric chest wall rise; Absent tenderness Respiratory Respiratory exam: Present normal lung sounds bilaterally; Absent respiratory distress Cardiovascular Cardiovascular exam: Present regular rate and normal rhythm; Absent JVD Abdominal Exam Abdominal exam: Present soft and normal bowel sounds; Absent distention, tenderness or guarding Extremities Exam Extremities exam: Present normal inspection, full ROM and normal capillary refill; Absent calf tenderness Back Exam Back exam: Present normal inspection; Absent tenderness Neurological Exam Neurological exam: Present alert and oriented X3 Psychiatric Psychiatric exam: Present normal affect and normal mood Skin Skin exam: Present warm, dry, intact and normal color Lymphatic Lymphatic Findings: no adenopathy Medical Decision Making Medical Records Medical records reviewed: No I reviewed the patient's medical records. Joselito Inquiry Pt receiving controlled substance: No Vital Signs: 11/09/23 10:05 11/09/23 11:02 Temperature 97.9 F 97.9 F Temperature Source Oral Oral Pulse Rate 71 Pulse Rate [Right Radial] 71 Respiratory Rate 18 18 Blood Pressure 140/89 Blood Pressure [Right Arm] 140/89 Blood Pressure Mean [Right Arm] 106 Blood Pressure Source Automatic Cuff Blood Pressure Source [Right Arm] Automatic Cuff Blood Pressure Position Sitting Blood Pressure Position [Right Arm] Sitting 02 Sat by Pulse Oximetry 95 Oxygen Delivery Method Room Air Room Air Lab Data Lab results reviewed: Yes I reviewed the patient's lab results.
== END 2023-11-09 11:02 | disposition home or self-care (01) ==
PROVIDERS: Emergency Provider Nurse Practitioner Family; PCP Physician Assistant
DX: J44.1 Chronic obstructive pulmonary disease with (acute) exacerbation (principal); R06.02 Shortness of breath; R05.9 Cough, unspecified; F17.210 Nicotine dependence, cigarettes, uncomplicated; E78.5 Hyperlipidemia, unspecified; E03.9 Hypothyroidism, unspecified; R09.89 Other specified symptoms and signs involving the circulatory and respiratory systems; R53.81 Other malaise
CPT/HCPCS: 99212; 99214; G0463

== ENCOUNTER 2024-04-23 05:41 | Emergency (ER) | payer OTHER, SELFPAY ==
[2024-04-23 05:42] VITALS: BP 144/93; PULSE 93; RESP 20; TEMP 36.9; O2SAT 95; BMI 23.3
--- NOTE | 2024-04-23 05:50 | ECG_ITS ---
APPROVED REPORT Exam: Resting ECG HR:91 bpm ECG Measurements Heart Rate 91 AXES DE 122 P 66 QRSd 96 QRS 101 QT 362 T 50 QTc 411 Conclusion SINUS RHYTHM RIGHT AXIS DEVIATION [QRS AXIS > 100] INCOMPLETE RIGHT BUNDLE BRANCH BLOCK Electronically signed by : FAUZIA VENEGAS, 04/23/2024 15:04:16
[2024-04-23 05:56] LABS: Coronavirus 19, PCR Not Detected (NotDetected); Influenza A, PCR Not Detected (NotDetected); Influenza B, PCR Not Detected (NotDetected)
--- NOTE | 2024-04-23 05:57 | XR_ITS ---
PROCEDURE INFORMATION: Exam: XR Chest Exam date and time: 04/23/2024 6:01 AM Age: 53 years old Clinical indication: Shortness of breath; Additional info: SOA TECHNIQUE: Imaging protocol: Radiologic exam of the chest. Views: 1 view. COMPARISON: CR XR CHEST 2V 01/27/2022 4:26 PM FINDINGS: Lungs: Unremarkable. No consolidation. Pleural spaces: Unremarkable. No pleural effusion. No pneumothorax. Heart/Mediastinum: Unremarkable. No cardiomegaly. Bones/joints: Unremarkable. IMPRESSION: No acute findings.
--- NOTE | 2024-04-23 05:59 | ED_ITS ---
Discharge Plan Disposition Patient Disposition: Home, Self-Care Prescriptions Prescriptions: No Action Trelegy Ellipta 100-62.5-25 mcg blister with device See Rx Instructions .ROUTE .COMPLEX Qty: 60 2RF Dose Instruction: INHALE 1 PUFF BY MOUTH ONCE A DAY FOR COPD Rx Instructions: INHALE 1 PUFF BY MOUTH ONCE A DAY FOR COPD Referrals Follow up/Referrals: Irma Alberts PA [Primary Care Provider] - See instructions Activity Restrictions/Add. Instructions Additional Instructions/Restrictions: Please follow-up with your primary care provider. Please return to the emergency department if you develop any new or worsening symptoms or become concerned for your health. Clinical Impressions Clinical Impression: Acute sore throat Stand Alone Forms Stand Alone Forms: Work/School Release Discharge ED Provider: Paul Guerra Adult HPI General Chief complaint: Upper Respiratory Infection Stated complaint: sore throat, body aches, cough, SOA Time Seen by Provider: 04/23/24 05:45 Mode of Arrival: Ambulatory Source of Information: Patient Limitations: No Limitations Description of Symptoms (Recalled from ER Triage Doc. by RN): Patient reports feeling unwell since Tuesday. With progressively worsening sore throat, body aches, and shortness of breath. Patient uses triligy for COPD and states that it doesn't seem to be helping as much as it usually does with his breathing. Patient denies any known sick contacts, denies nausea vomiting and diarrhea, no known fevers at home. History of Present Illness HPI narrative: 53-year-old male with reported history of COPD presents with sore throat body aches shortness of breath. He reports that his symptoms started on Tuesday, 2 days ago. This morning he went to work and was not feeling well so decided to come to the ER. He reports that he uses a trilogy inhaler but it did not really help today. Reports that his throat is sore and his muscles ache all over. Reports dry cough. Related Data Previous Rx's Medication Instructions Recorded fluticasone fur. 100 mcg-umeclid See Rx Instructions .Route 10/13/23 62.5 mcg-vilant 25 mcg .COMPLEX #60 ea inhalat.powder (Trelegy Ellipta) Allergies Allergy/AdvReac Type Severity Reaction Status Date / Time No Known Allergies Allergy Verified 03/01/24 15:37 [facility] Disclaimer: The information contained in this section may have been updated after the patient was seen, as this information can be updated by other users. Medical History Chronic obstructive pulmonary disease Hyperlipidemia Hypothyroidism Vitamin D deficiency Social History Smoking Status: Current every day smoker tobacco type: cigarettes packs per day: 1 second hand exposure: Yes alcohol intake: current alcohol intake frequency: 3 or more drinks per day substance use type: denies use current occupational status: employed Travel in the last 8 weeks: None housing: house ROS Obtained: Yes All systems reviewed & no additional complaints except as documented Physical Exam General General appearance: alert and in no apparent distress Head Head exam: atraumatic and normocephalic Eye Eye exam: Present normal appearance, PERRL and EOMI ENT ENT exam: Present normal external ear exam and other (Erythematous posterior oropharynx) Neck Neck exam: Present normal inspection and full ROM Chest Chest inspection: Present normal inspection and symmetric chest wall rise; Absent tenderness Respiratory Respiratory exam: Present normal lung sounds bilaterally; Absent respiratory distress or wheezes Cardiovascular Cardiovascular exam: Present regular rate and normal rhythm Abdominal Exam Abdominal exam: Present soft; Absent distention, tenderness or guarding Extremities Exam Extremities exam: Present normal inspection; Absent edema or joint swelling Back Exam Back exam: Present normal inspection; Absent tenderness Neurological Exam Neurological exam: Present alert and oriented X3; Absent motor sensory deficit Psychiatric Psychiatric exam: Present normal affect and normal mood Skin Skin exam: Present warm, dry and normal color Lymphatic Lymphatic Findings: no adenopathy Medical Decision Making Medical Records Medical records reviewed: Yes I reviewed the patient's medical records. Joselito Inquiry Pt receiving controlled substance: No Joselito was queried for this patient: No Vital Signs: 04/23/24 05:42 04/23/24 06:29 Temperature 98.4 F 98.2 F Temperature Source Oral Oral Pulse Rate 91 H Pulse Rate [Left Radial] 93 H Respiratory Rate 20 18 Blood Pressure 137/97 H Blood Pressure [Left Arm] 144/93 H Blood Pressure Mean [Left Arm] 110 Blood Pressure Source Automatic Cuff Blood Pressure Source [Left Arm] Automatic Cuff Blood Pressure Position Sitting Blood Pressure Position [Left Arm] Supine 02 Sat by Pulse Oximetry 95 Oxygen Delivery Method Room Air Room Air Lab Data Lab results reviewed: Yes I reviewed the patient's lab results. Lab Results 04/23/24 05:42: Group A Strep Rapid Negative 04/23/24 05:47: SARS-CoV-2 (PCR) Not detected, Influenza A Untype (PCR) Not detected, Influenza Type B (PCR) Not detected Orders (Tests/Meds): ORDERS Category Date Time Status CXR --portable [XR chest portable] Stat Exams 04/23/24 05:57 Completed Rapid PCR Covid and Flu A/B Stat Lab 04/23/24 05:47 Completed Strep Scrn Group A (Rapid) Stat Lab 04/23/24 05:42 Completed Strep Screen Confirmation Stat Micro 04/23/24 05:42 Received Medical Decision Narrative: 53-year-old male reported history of COPD presents with multiple complaints. Went to work this morning and felt worse, so came to the ER. Reports 2 days of sore throat, muscle aches, mild dry cough.. History was obtained interactive discussion with patient. On arrival, patient is [afebrile, hemodynamically stable, satting appropriately, alert, oriented x4, GCS 15], moving all extremities spontaneously. Full physical exam performed and significant for clear lungs bilaterally, erythematous posterior oropharynx. Differential includes but is not limited to COPD exacerbation, pneumonia, flu, COVID, strep pharyngitis, viral pharyngitis. Workup initiated including flu/COVID swab, strep swab, chest x-ray. No interventions indicated at this time given clear lungs and normal vitals.. On re-evaluation, patient [remains afebrile, HD stable.] Laboratory workup independently interpreted by me and significant for negative COVID flu swab, negative strep swab. Imaging independently interpreted by me and significant for clear lungs bilaterally without focal opacity. See radiology read for full review of final results. Given patient history, exam and workup, patient's presentation most likely represents viral upper respiratory infection. This findings were communicated patient. He was discharged in stable condition with return precautions. Procedures Risk/Benefits of Procedure(s) Were Explained: Yes Critical Care Critical Care Time Critical Care Time: No
[2024-04-23 06:18] LABS: Strep Scrn Group A (Rapid) Negative (Negative)
[2024-04-23 06:29] VITALS: BP 137/97; PULSE 91; RESP 18; TEMP 36.8; O2SAT 96
== END 2024-04-23 06:31 | disposition home or self-care (01) ==
PROVIDERS: Emergency Provider Emergency Medicine; PCP Physician Assistant
DX: J02.9 Acute pharyngitis, unspecified (principal); R06.02 Shortness of breath; R05.9 Cough, unspecified; J44.9 Chronic obstructive pulmonary disease, unspecified; F17.210 Nicotine dependence, cigarettes, uncomplicated; E78.5 Hyperlipidemia, unspecified; E03.9 Hypothyroidism, unspecified
CPT/HCPCS: 71045; 87430; 87636; 93005; 99284

== ENCOUNTER 2025-09-23 03:43 | Emergency (ER) | payer OTHER, SELFPAY ==
--- NOTE | 2025-09-23 03:47 | XR_ITS ---
PROCEDURE INFORMATION: Exam: XR Chest Exam date and time: 09/23/2025 4:48 AM Age: 54 years old Clinical indication: Shortness of breath; Additional info: SOA, copd TECHNIQUE: Imaging protocol: Radiologic exam of the chest. Views: 1 view. COMPARISON: No relevant prior studies available. FINDINGS: Lungs: Unremarkable. No consolidation. Pleural spaces: Unremarkable. No pleural effusion. No pneumothorax. Heart/Mediastinum: Unremarkable. No cardiomegaly. Bones/joints: Unremarkable. IMPRESSION: No acute findings.
[2025-09-23 03:52] VITALS: BP 153/102; PULSE 102; RESP 21; TEMP 36.7; O2SAT 91; BMI 23.3
--- OUTSIDE RECORDS SUMMARY | 2025-09-23 03:53 | XMS_ITS ---
Author Organization Unknown ENCOUNTERS Encounter Performer Location Date Diagnosis Diagnosis Status Emergency [facility] [address] [facility] [address] [place] [address] [id number] Pre Admit [facility] [address] [facility] [address] [place] [address] [id number] Emergency [address] [place] [address] [id number] B[place] Pre Admit [facility] [address] [place] [address] [address] [place] [address] [id number] Emergency [address] [place] [address] [id number] BIRD Pre Admit [address] [place] [address] [id number] Emergency Merly Disla [address] [place] [address] [id number] [facility] Emergency [address] [place] [address] [id number] [facility] Emergency [address] [place] [address] [id number] [facility] Emergency Chuck Vallejo [place] [id number] [facility] [address] [place] [address] [id number] BIRD *Note: Encounters from your own facility or health system may be excluded. Allergies, Adverse Reactions, Alerts Allergen Type Severity Identification Date Medications Name Date Quantity Days Supplied GPI Number
--- OUTSIDE RECORDS SUMMARY | 2025-09-23 03:53 | XMS_ITS | Data Portability ---
Author Organization [facility] Address [address] [place] [address] Assessment No assessment recorded. Plan of Treatment Reminders Order Date Submit Date Provider Last Modified By Organization Details Last Modified Time Details Appointments None recorded. Lab None recorded. Referral None recorded. Procedures None recorded. Surgeries None recorded. Imaging None recorded. Medication Orders Trelegy Ellipta 100 mcg-62.5 mcg-25 mcg powder for inhalation 2024 025 [facility], [address] [place] [address], [phone], 17:58:15 Trelegy Ellipta 100 mcg-62.5 mcg-25 mcg powder for inhalation 2024 025 [facility], [address] [place] [address], [phone], 15:48:26 Patient TargetsNo targets recorded. Patient Instructions Encounter Date Encounter Id Patient Instructions Last Modified By Organization Details Last Modified Time 01/04/2025 [id number] acute alcohol intoxication: care instructions [email or web address] Not available 01/07/2025 11:26:31 chronic obstructive pulmonary disease (COPD): care instructions [email or web address] Not available 01/04/2025 15:47:57 learning about copd and how to prevent lung infections [email or web address] Not available 01/04/2025 15:47:57 02/04/2025 [id number] acute alcohol intoxication: care instructions [email or web address] Not available 02/04/2025 12:08:38 chronic obstructive pulmonary disease (COPD): care instructions Not available 02/04/2025 09:53:16 learning about copd and how to prevent lung infections [email or web address] Not available 02/04/2025 09:53:16 Reason for Referral None Reported. Problems Name Problem SNOMED Code Status Onset Date Resolution Date Notes Provider Name and Address Organization Details Recorded Time Chronic obstructive pulmonary disease 34860615 Active 025 DAMON Marcano [address] [place] [address], [phone], [employer] 5 15:47:29 Harmful pattern of use of alcohol 90065111 Active 025 DAMON Marcano [address] [place] [address], [phone], [employer]. 11:26:21 Problem Notes None recorded. Medical Equipment None Reported. Allergies No known drug allergies Medications Name Sig Start Date Stop Date Status Note LastModified by Organization Details LastModified Time amoxicillin 875 mg tablet TAKE 1 TABLET BY MOUTH 2 TIMES A DAY FOR 10 DAYS active Not Available Not Available No t Available benzonatate 100 mg capsule 01/04 completed Not Available Not Available Not Available methylpredni solone 4 mg tablets in a dose pack 01/04 completed Not Available Not Available Not Available fluticasone propionate 50 mcg/actuatio n nasal spray,suspen qi INSTILL 1 SPRAY INTO EACH NOSTRIL ONCE A DAY active Not Available Not Available No t Available amoxicillin 875 mg-potassium clavulanate 125 mg tablet 01/04 completed Not Available Not Available Not Available guaifenesin ER 600 mg tablet, extended release 12 hr 01/04 completed Not Available Not Available Not Available Trelegy Ellipta 100 mcg-62.5 mcg-25 mcg powder for inhalation INHALE 1 PUFF BY MOUTH ONCE A DAY active Not Available Not Available No t Available Vitals Date Recorded Body weight Body mass index (BMI) Body height Heart rate Oxygen saturation Body temperature Systolic And Diastolic Systolic And Diastolic Provider Name and Address Organization Details Last Updated DateTime 53489.2 4 g 23.5 kg/m2 165.1 cm 82 /min 94 % 98.4 [degF] 152/90 mm[Hg] 146/90 mm[Hg] Gladis [facility] [employer]. 15:30:38 Date Recorded Body height Body mass index (BMI) Body weight Heart rate Oxygen saturation Body temperature Systolic And Diastolic Systolic And Diastolic Provider Name and Address Organization Details Last Updated DateTime 165.1 cm 24.4 kg/m2 85197.9 2 g 90 /min 95 % 97.9 [degF] 150/92 mm[Hg] 144/90 mm[Hg] Gladis Williamson [employer] 09:38:47 Social History Question Answer Notes LastModified by Organizat ion Details LastModified Time Tobacco Smoking Status Current Every Day Smoker Gladis Williamson angie, [employer]. 01/04/2025 15:32:41 Do You Have An Advance Directive? No Information not available 01/04/2025 Is Your Home Air Conditioned? Yes Information not available 01/04/2025 How Many Years Have You Consumed Alcohol? 8 Information not available 01/04/2025 Are You Blind Or Do You Have Difficulty Seeing? No Information not available 01/04/2025 What Is Your Level Of Caffeine Consumption? Occasional Information not available 01/04/2025 Are You A Caregiver? No Information not available 01/04/2025 Have You Been To An Area Known To Be High Risk For COVID-19? No Information not available 01/04/2025 Are You Deaf Or Do You Have Serious Difficulty Hearing? No Information not available 01/04/2025 What Type Of Diet Are You Following? REGULAR Information not available 01/04/2025 Who Is Your Employer? [employer] Information not available 01/04/2025 Have There Been Any Changes To Your Family Or Social Situation? No Information no t available 01/04/2025 Which Of Your Hands Is Dominant? Right Information not available 01/04/2025 Do You Have A Medical Power Of Benefits Sales Consultant? No Information not available 01/04/2025 What Was The Date Of Your Most Recent Tobacco Screening? 02/04/2025 Information not available 02/04/2025 Have You Ever Been Counseled For Unhealthy Alcohol Use? Yes Information not available 02/04/2025 What Is Your Relationship Status? Information not available 01/04/2025 Do You Use Your Seat Belt Or Car Seat Routinely? Yes Information not available 01/04/2025 Do You Have Smoke And Carbon Monoxide Detectors In Your Home? Yes Information not available 01/04/2025 At What Age Did You Start Smoking Tobacco? 15 Information not available 01/04/2025 Are You Passively Exposed To Smoke? Yes Information no t available 01/04/2025 Are There Any Smokers In Your House? Yes Information not available 01/04/2025 How Much Tobacco Do You Smoke? 2 PPD Information not available 01/04/2025 Has Tobacco Cessation Counseling Been Provided? Yes Information not available 01/04/2025 On What Date Was Tobacco Cessation Counseling Provided? 02/04/2025 Information not available 02/04/2025 Have You Recently Traveled Abroad? No Information not available 01/04/2025 Do You Have Difficulty Walking Or Climbing Stairs? No Information not available 01/04/2025 Are You Currently In School? No Information not available 01/04/2025 Do You Have Any Dietary Restrictions? No Information not available 01/04/2025 How Many Days In The Past Year Have You Consumed 5 Or More Drinks? 365 Information no t available 01/04/2025 Sex: Unknown Functional Status Question Answer Note LastModified by Organizat ion Details LastModified Time How many times per week do you consume alcohol? 5-7 times per week Information not available 01/04/2025 Do you use any illicit or recreational drugs? No Information not available 01/04/2025 Do you or have you ever used any other forms of tobacco or nicotine? No Information not available 01/04/2025 What is your level of alcohol consumption? Heavy Went to rehab discharged from [facility] 01/31- no longer drinking Information not available 02/04/2025 Are you currently employed? Yes Information not available 01/04/2025 Do you have transportation difficulties? No Information not available 01/04/2025 Are you able to walk independently without assistance or assistive devices? YESWOREST Information not available 01/04/2025 Do you have difficulty doing errands alone? No Information not available 01/04/2025 Are you able to care for yourself independently? Yes Information not available 01/04/2025 Do you have difficulty dressing, bathing, grooming, or toileting? No Information not available 01/04/2025 Mental Status Question Answer Note LastModified by Organizat ion Details LastModified Time Do you feel stressed (tense, restless, nervous, or anxious, or unable to sleep at night)? [id number] Information not available 01/04/2025 Do you have difficulty concentrating, remembering or making decisions? No Information no t available 01/04/2025 Family History Nothing Reported. Medical History Condition Response Coronary Artery Disease N Other N Gout N Kidney Stones N Blood Diseases N Hyperthyroidism N Blood Transfusion N Breast Cancer N Emergency room visit since last appointm ent. N COPD Y Depression N Dermatologic Disorders N Lung Disease N Hypothyroidism N Developmental or Behavioral Disorders N Defects or Inherited Disease N Breast Problem N Difficulty Swallowing N Anesthesia Complications N History of STI N Anxiety Disorder N Meniere's disease N Autoimmune disease N Muscle, Joint, or Bone Problems N Vision or Eye Problems N Arthritis N Infertility N Polyps N Mental Disorder N Congenital Anomalies N Acid Reflux (GERD) N Cancer N Stroke N Neurologic/Epilepsy N Endometriosis N Bladder or Kidney Problems N High Cholesterol N Liver Disease N Psychiatric/Mental Health Condition N Organ Transplant N Fibromyalgia N Headaches N Schizophrenia N Dialysis N Kidney Disease N Allergies/Hayfever N Heart Problems N Ear or Hearing Problems N Hospitalizations N Learning Disorder N Artificial Joints N Thyroid Problems N GI Problems N Acne N ADD/ADHD N Eating Disorder N Anemia N Constipation N Mental Illness N Ovarian Cancer N Diabetes N Bedwetting N Hepatitis/Liver Disease N Tuberculosis N Eczema N Diverticulitis N Abuse/Domestic Violence N Asthma N Trauma/Violence N Substance Abuse Y Reflux/GERD N Depression/ depression N Hepatitis N Heart Disease N Pulmonary Embolism N Tourette Syndrome N Chronic Ear Infections N Pre-Eclampsia N Hypertension N Chicken Pox N Autism Spectrum Disorder (ASD) N Osteoporosis N Thrombophilias N Immunizations Vaccine Type Date Status Note Provider Nam e and Address Organization Details Recorded Time COVID-19 vaccine, vector-nr, rS-Ad26, PF, 0.5 mL 1 completed Gladis Vice null, [email or web address] 01/04/2025 15:26:46 Pneumococcal conjugate PCV20, polysaccharide BTA299 conjugate, adjuvant, PF 3 completed Gladis Vice null, [email or web address] 01/04/2025 15:26:46 Past Encounters Encounter ID Performer Location Encounter Start Date Encounter Closed Date Diagnosis/Indication Diagnosis SNOMED-CT Code Diagnosis ICD10 Code Diagnosis IMO Codes Diagnosis Note [id number] DAMON Marcano [facility] [address] [place] [id number] 01/04/2025 15:04:08 01/04/2025 15:49:43 Chronic obstructive pulmonary disease 44384921 J44.9 Harmful pa ttern of use of alcohol 45294165 F10.10 Patient plans to enter rehab next week [id number] DAMON Marcano [facility] [address] [place] [address] 02/04/2025 09:25:24 02/04/2025 09:53:47 Chronic obstructive pulmonary disease 33480440 J44.9 Harmful pa ttern of use of alcohol 93229305 F10.10 Just completed detox Health Concerns Section Related Observation LastModified by Organization Detai ls LastModified Time None Recorded Concern Status LastModified by Organization Details LastModified Time None Recorded Advance Directives Directive N: Payers Insurance Date Sequence Insurance Name Policy Number Policy Mohan Covered Member ID Mohan Member ID Guarantor Name 08/24/2025 1 [facility] Jack Mcclure Stamper [id number] Gita Stamper 01/04/2025 1 *SELF PAY* Gl john Stamper Notes Date Note Type Note Provider Name and Address Organization Details Recorded Time 01/04/2025 text/html ROS as noted in the HPI Patient presents to establish care.Patient has history of COPD. Needs refills on Trelegy.Also has excessive alcohol use. Says he drinks every night. More on weekends. Has never interfered with work, has never driven while drinking, has never had an accident, etc but his went to rehab a few months ago for opioids and he has decided to go to rehab next Tuesday for alcohol so they can be sober together. DAMON Marcano [address] [place], [address], [email or web address] 01/07/2025 11:28:34 02/04/2025 text/html ROS as noted in the HPI Patient presents for followup.Recently completed inpatient rehab/alcohol detox. Has been sober 25 days. Going to meetings and counseling.Histor y of COPD. Refills on Trelegy. DAMON Marcano [address] [place], [address], [email or web address] 02/04/2025 12:11:06
[2025-09-23 03:54] LABS: Coronavirus 19, PCR Not Detected (NotDetected); Influenza A, PCR Not Detected (NotDetected); Influenza B, PCR Not Detected (NotDetected)
[2025-09-23] MEDS: IPRATROPIUM/ALBUTEROL 3 ML NEB IH (04:00)
--- NOTE | 2025-09-23 04:03 | ED_ITS ---
Discharge Plan Disposition Patient Disposition: Home, Self-Care Prescriptions Prescriptions: New azithromycin 250 mg tablet See Rx Instructions .ROUTE .COMPLEX Qty: 6 0RF Rx Instructions: For 250 mg dose pack: take 500 mg today (day 1), then 250 mg for 4 days (days 2-5) amoxicillin-pot clavulanate 875-125 mg tablet 1 tab PO BID 5 Days Qty: 10 0RF prednisone 50 mg tablet 50 mg PO DAILY 5 Days Qty: 5 0RF No Action amoxicillin 875 mg tablet 875 mg PO BID Qty: 20 0RF fluticasone propionate 50 mcg/actuation spray,suspension 1 spray intranasal DAILY Qty: 16 0RF Rx Instructions: administer into each nostril Trelegy Ellipta 100-62.5-25 mcg blister with device See Rx Instructions .ROUTE .COMPLEX Qty: 60 3RF Dose Instruction: INHALE 1 PUFF BY MOUTH ONCE A DAY FOR COPD Rx Instructions: INHALE 1 PUFF BY MOUTH ONCE A DAY FOR COPD Referrals Follow up/Referrals: Irma Ablerts PA [Primary Care Provider, Medical] - See instructions Activity Restrictions/Add. Instructions Additional Instructions/Restrictions: Please take antibiotics as prescribed for treatment of COPD exacerbation and possible pneumonia. Please use albuterol inhaler as needed. Please follow-up with your primary care provider. Please return to the emergency department if you develop any new or worsening symptoms or become concerned for your health. Clinical Impressions Clinical Impression: Acute exacerbation of chronic obstructive airways disease Stand Alone Forms Stand Alone Forms: Work/School Release Print Language Print Language: [place] Discharge ED Provider: Paul Guerra General Adult HPI General Chief complaint: Shortness of Breath/Dyspnea Stated complaint: trouble breathing Time Seen by Provider: 09/23/25 03:45 Mode of Arrival: Ambulatory Source of Information: Patient Description of Symptoms (Recalled from ER Triage Doc. by RN): Pt present with complaints of feeling SOA. States he felt like he was getting a sinus infection yesterday and this morning it had progressed into his chest. Pt has a hx of COPD, no home oxygen, 91% on room air at this time. History of Present Illness HPI narrative: 54-year-old male with history of COPD presents for shortness of breath. He reports that he is had nasal congestion and a cough for the last couple of days and is feeling more short of breath. No fever at home. Related Data Previous Rx's ?Medication ?Instructions ?Recorded fluticasone fur. 100 mcg-umeclid See Rx Instructions . Route 10/11/24 62.5 mcg-vilant 25 mcg .COMPLEX #60 blisters inhalat.powder (Trelegy Ellipta) amoxicillin 875 mg tablet 875 mg PO BID #20 tabs 08/19 fluticasone propionate 50 1 spray intranasal DAILY #16 grams 08/19/25 mcg/actuation nasal spray,suspension amoxicillin 875 mg-potassium 1 tab PO BID 5 days #10 t abs 09/23/25 clavulanate 125 mg tablet azithromycin 250 mg tablet See Rx Instructions PO .COM PLEX #6 09/23/25 tabs prednisone 50 mg tablet 50 mg PO DAILY 5 days #5 tab s 09/23/25 Allergies Allergy/AdvReac Type Severity Reaction Status Date / Time No Known Allergies Allergy Verified 08/19/25 14:38 [facility] Disclaimer: The information contained in this section may have been updated after the patient was seen, as this information can be updated by other users. Medical History Vitamin D deficiency Hypothyroidism Hyperlipidemia Chronic obstructive pulmonary disease Social History Smoking Status: Current every day smoker tobacco type: cigarettes packs per day: 1 second hand exposure: Yes alcohol intake: current alcohol intake frequency: 3 or more drinks per day substance use type: denies use current occupational status: employed Travel in the last 8 weeks?: None housing: house Have you lived/traveled outside [place] in past 30 days?: No Contact w/someone who lives/traveled outside [place] past 30 days?: No Exposure to someone with infectious disease in past 14 days?: No Do you have a fever (greater than 100.4 F or 38 C)?: No Have you tested positive for COVID-19?: No Exposed to someone with COVID-19 in past 14 days?: No Do you have a sore throat?: No Do you have a cough?: No Do you have any weakness?: No Do you have any diarrhea?: No Are you experiencing any unusual bleeding?: No Do you have any muscle aches/pain?: No Do you have any abdominal pain?: No Are you experiencing loss of taste or smell?: No Other Medical History Have you received the Flu Vaccine for this season: No Have you received the Pneumonia Vaccine: Yes ROS Obtained: Yes All systems reviewed & no additional complaints except as documented Physical Exam General General appearance: alert and in no apparent distress Head Head exam: atraumatic and normocephalic Eye Eye exam: Present normal appearance, PERRL and EOMI ENT ENT exam: Present normal oropharynx and normal external ear exam Neck Neck exam: Present normal inspection and full ROM Chest Chest inspection: Present normal inspection and symmetric chest wall rise; Absent tenderness Respiratory Respiratory exam: Present wheezes (Bilateral wheezing and mild prolonged expiratory phase without increased work of breathing); Absent respiratory distress Cardiovascular Cardiovascular exam: Present normal rhythm and tachycardia Abdominal Exam Abdominal exam: Present soft; Absent distention, tenderness or guarding Extremities Exam Extremities exam: Present normal inspection; Absent edema or joint swelling Back Exam Back exam: Present normal inspection; Absent tenderness Neurological Exam Neurological exam: Present alert and oriented X3; Absent motor sensory deficit Psychiatric Psychiatric exam: Present normal affect and normal mood Skin Skin exam: Present warm, dry and normal color Lymphatic Lymphatic Findings: no adenopathy Medical Decision Making Medical Records Medical records reviewed: Yes I reviewed the patient's medical records. Screening: Per USPSTF and CDC recommendations, given the prevalence of disease in our region, it is our hospital?s policy to screen for HIV and viral Hepatitis for all patients aged 18 and over and those with ongoing risk factors. Joselito Inquiry Pt receiving controlled substance: No Joselito was queried for this patient: No Vital Signs: 09/23/25 03:52 09/23/25 04:30 09/23/25 05:12 Temperature 98.1 F 98.1 F Temperature Source Oral Oral Pulse Rate 105 H 94 H Pulse Rate [Left] 102 H Respiratory Rate 21 20 Blood Pressure 127/81 111/94 H Blood Pressure [Right Arm] 153/102 H Blood Pressure Mean 96 Blood Pressure Mean [Right Arm] 119 Blood Pressure Source Automatic Cuff Blood Pressure Source [Right Arm] Automatic Cuff Blood Pressure Position Sitting Blood Pressure Position [Right Arm] Sitting 02 Sat by Pulse Oximetry 91 L 93 L Oxygen Delivery Method Room Air Room Air Lab Data Lab results reviewed: Yes I reviewed the patient's lab results. Lab Results 09/23/25 03:50: SARS-CoV-2 (PCR) Not detected, Influenza A Untype (PCR) Not detected, Influenza Type B (PCR) Not detected Orders (Tests/Meds): ED MEDICATIONS Discontinued Medications Generic Name Dose Route Start Last Admin Trade Name Lety PRN Reason Stop Dose Admin Albuterol Sulfate 2 puff 09/23/25 04:57 09/23/25 05:08 Albuterol-Hfa 90mcg/Puff Inhaler 8gm IH 10/23/25 04:56 2 puff Q4HP PRN Administration Shortness Of Breath Albuterol/Ipratropium 3 ml 09/23/25 03:47 09/23/25 04:00 Ipratropium/Albuterol 3 Ml Neb IH 09/23/25 03:48 3 ml ONCE ONE Administration Amoxicillin/Clavulanate Potassium 1 each 09/23/25 04:56 09/23/25 05:08 Amoxicillin/Clavulanate Potassium 875/125mg Tablet PO 09/23/25 04:57 1 each ONCE ONE Administration Azithromycin 500 mg 09/23/25 04:56 09/23/25 05:08 Azithromycin 250mg Tablet PO 09/23/25 04:57 500 mg ONCE ONE Administration Miscellaneous 1 unit 09/23/25 04:57 09/23/25 05:09 Aerochamber/Optihaler MC 09/23/25 04:58 1 unit ONCE ONE Administration Prednisone 60 mg 09/23/25 03:47 09/23/25 04:07 Prednisone 20mg Tab PO 09/23/25 03:48 60 mg ONCE ONE Administration ORDERS Category Date Time Status CXR --portable [XR chest portable] Stat Exams 09/23/25 03:47 Completed Rapid PCR Covid and Flu A/B Stat Lab 09/23/25 03:50 Completed Medical Decision Narrative: 54-year-old male with history of COPD presents for sinus congestion and worsening shortness of breath over the last couple of days. History was obtained via interactive discussion with patient. On arrival, patient is [afebrile, hemodynamically stable, satting low 90s on room air, alert, oriented x4, GCS 15], moving all extremities spontaneously. Full physical exam performed and significant for faint wheezing and prolonged expiratory phase without significant shortness of breath. Patient has nasal congestion. Differential includes but is not limited to COPD exacerbation, pneumonia, URI. Patient was given 1 DuoNeb for symptomatic management and correction of underlying abnormalities. Workup initiated including chest x-ray, COVID flu. On re-evaluation, patient reports significant symptomatic improvement Laboratory workup independently interpreted by me and significant for negative COVID flu swab. Imaging independently interpreted by me and significant for subtle basilar lung abnormality concerning for pneumonia. See radiology read for full review of final results. Given patient history, exam and workup, patient's presentation most likely represents COPD exacerbation. Given borderline sats and some subtle chest x-ray changes, we will treat as pneumonia/COPD exacerbation with Augmentin, azithromycin and prednisone. He is discharged with an inhaler. Procedures Risk/Benefits of Procedure(s) Were Explained: Yes Critical Care Critical Care Time Critical Care Time: No
[2025-09-23 04:30] VITALS: BP 127/81; PULSE 105; O2SAT 93
[2025-09-23] MEDS: ALBUTEROL-HFA 90MCG/PUFF INHALER 8GM 2 PUFF IH (05:08)
[2025-09-23] MEDS: AMOXICILLIN/CLAVULANATE POTASSIUM 875/125MG TABLET 1 EACH PO (05:08)
[2025-09-23] MEDS: AZITHROMYCIN 250MG TABLET 500 MG PO (05:08)
[2025-09-23] MEDS: AEROCHAMBER/OPTIHALER 1 UNIT MC (05:09)
[2025-09-23 05:12] VITALS: BP 111/94; PULSE 94; RESP 20; TEMP 36.7; O2SAT 96
== END 2025-09-23 05:21 | disposition home or self-care (01) ==
PROVIDERS: Emergency Provider Emergency Medicine; PCP Physician Assistant
DX: J44.1 Chronic obstructive pulmonary disease with (acute) exacerbation (principal); F17.210 Nicotine dependence, cigarettes, uncomplicated
CPT/HCPCS: 71045; 87636; 99284